=== PATIENT | female | born 1945 | race African-American/Black ===

== ENCOUNTER 2019-04-24 12:12 | Inpatient (IN) | payer MEDICARE, BC, MEDICAID ==
[2019-04-24] VITALS (27 sets, daily range): BP systolic 87–144; BP diastolic 46–75
[~2019-04-24] VITALS: Ht 170.2 cm; Wt 93.0 kg
[2019-04-24] MEDS ORDERED: SODIUM CHLORIDE 0.9% 1,000 ML IV ONE ×2 (12:21→18:30)
[2019-04-24] MEDS ORDERED: LORAZEPAM 2MG/ML CPJ ONE (12:26)
[2019-04-24] MEDS ORDERED: LORAZEPAM 2MG/ML CPJ IV ONE (12:30)
[2019-04-24] MEDS ORDERED: LEVETIRACETAM 1000MG/100ML 100 ML IV ONE (12:30)
[2019-04-24 12:53] LABS: BASOPHILS % 0.6 % (0.0-2.0); EOSINOPHILS % 0.7 % (0.0-5.0); HEMATOCRIT. 42.6 % (36.0-48.0); HEMOGLOBIN. 14.3 g/dL (12.0-16.0); MEAN CORPUSCULAR VOLUME 89.3 fL (81.0-99.0); MEAN PLATELET VOLUME 11.2 fl (7.4-10.4); MONOCYTES % 7.6 % (2.0-8.0); NEUTROPHILS % 64.1 % (40.0-76.0); PLATELET 177 x1000/uL (130-400); RED BLOOD CELL COUNT 4.77 mill/uL (4.2-5.4); RED CELL DISTRIBUTION WIDTH 13.8 % (11.6-14.6)
[2019-04-24 12:59] LABS: INR 1.3; PROTHROMBIN TIME 13.1 sec (9.6-11.0)
[2019-04-24 13:03] LABS: CHLORIDE 110 mEq/L (98-107)
[2019-04-24 13:08] LABS: ETHANOL BLOOD < 10 mg/dL
[2019-04-24 13:10] LABS: LDL CHOLESTEROL 111 mg/dL (5-100)
[2019-04-24 13:12] LABS: CREATINE KINASE 106 IU/L (26-192)
[2019-04-24] MEDS ORDERED: KCL 10MEQ/50ML PREMIX 50 ML IV ONE (13:30)
[2019-04-24] MEDS ORDERED: LEVOFLOXACIN 500MG PREMIX 100 ML IV ONE (13:30)
[2019-04-24 13:55] LABS: BG BASE EXCESS -7.8 mmol/L (-2.0-2.0); BG DEOXYHEMOGLOBIN 1.3 % (0.0-5.0); BG FRACTION INSPIRED OXYGEN 32; BG HCO3 ACT 15.7 mmol/L (22.0-26.0); BG METHEMOGLOBIN 0.1 % (0.0-1.5); BG OXYGEN SATURATION 98.7 % (92.0-98.5); BG OXYHEMOGLOBIN 98.6 % (94.0-97.0); BG PCO2 26.8 mmHg (35.0-45.0); BG PH 7.385 (7.350-7.450); BG PO2 157.3 mmHg (75.0-100.0); BG SAMPLE SITE RIGHT RADIAL; BG TOTAL HEMOGLOBIN 12.9 g/dL (12.0-18.0); BG VENT MODE NASAL CANNULA
[2019-04-24 14:12] LABS: CLARITY URINE TURBID (CLEAR); COLOR URINE DARK YELLOW (YELLOW); KETONES URINE 1+ (NEGATIVE); LEUKOCYTE ESTERASE URINE 2+ (NEGATIVE); NITRITE URINE POSITIVE (NEGATIVE); OCCULT BLOOD URINE 1+ (NEGATIVE); PH URINE 5.5 (4.5-8.0); PROTEIN URINE 2+ (NEGATIVE); SPECIFIC GRAVITY URINE 1.026 (1.005-1.030)
[2019-04-24] MEDS ORDERED: PANTOPRAZOLE SODIUM 40 MG/VIAL IV SCH (14:15)
[2019-04-24] MEDS ORDERED: LORAZEPAM 2MG/ML CPJ IV PRN (14:15)
[2019-04-24] MEDS ORDERED: DEXT 5%/0.45% NACL KCL 10MEQ/L 1,000 ML IV SCH (14:15)
[2019-04-24] MEDS ORDERED: ONDANSETRON HCL 4MG/2ML INJ IV PRN (14:15)
[2019-04-24] MEDS ORDERED: LEVOFLOXACIN 500MG PREMIX 100 ML IV SCH (14:15)
[2019-04-24] MEDS ORDERED: CLONIDINE 0.1MG TABLET PO PRN (14:15)
[2019-04-24 14:27] LABS: *AMPHETAMINES SCREEN URINE NEGATIVE (NEGATIVE)
[2019-04-24 14:28] LABS: *BARBITURATES SCREEN URINE NEGATIVE (NEGATIVE); *BENZODIAZEPINES SCREEN URINE PRESUMTIVE POSITIVE (NEGATIVE); *COCAINE SCREEN URINE NEGATIVE (NEGATIVE); CANNABINOID URINE SCREEN NEGATIVE (NEGATIVE); METHADONE URINE SCREEN NEGATIVE (NEGATIVE); OPIATES URINE SCREEN NEGATIVE (NEGATIVE); PHENCYCLIDINE URINE SCREEN NEGATIVE (NEGATIVE)
[2019-04-24] MEDS ORDERED: SODIUM CHLORIDE 0.9% 1,000 ML IV NR (17:30)
[2019-04-24] MEDS ORDERED: NOREPINEPHRINE 4 MG in DEXT 5% WATER 246 ML IV PRN (18:00)
[2019-04-24] MEDS ORDERED: DEXTROSE 50% WATER 50ML SYRINGE IV PRN (18:15)
[2019-04-24] MEDS: INSULIN LISPRO 100 UNITS/ML SUBCUT SCH ×2 (18:45→23:37)
[2019-04-24] MEDS: PANTOPRAZOLE SODIUM 40 MG/VIAL IV SCH (19:40)
[2019-04-24] MEDS: BLOOD SUGAR DIAGNOSTIC STRIP TEST SCH ×2 (19:41→23:41)
[2019-04-24] MEDS: DEXT 5%/0.45% NACL KCL 10MEQ/L 1,000 ML IV SCH (19:42)
[2019-04-24] MEDS ORDERED: LEVETIRACETAM 500MG/5ML CUP PO SCH (21:00)
[2019-04-24] MEDS: ATORVASTATIN CALCIUM 10MG TABLET PO SCH (21:00)
[2019-04-24] MEDS ORDERED: LEVETIRACETAM 500 MG in SODIUM CHLORIDE 0.9% 100 ML IV SCH (22:15)
[2019-04-24] MEDS: LEVETIRACETAM 500MG PREMIX 100 ML IV SCH (22:59)
[2019-04-25] VITALS (61 sets, daily range): BP systolic 74–175; BP diastolic 24–120
[2019-04-25 05:45] LABS: BASOPHILS % 0.6 % (0.0-2.0); EOSINOPHILS % 1.2 % (0.0-5.0); HEMATOCRIT. 40.6 % (36.0-48.0); HEMOGLOBIN. 13.4 g/dL (12.0-16.0); LYMPHOCYTES % 26.8 % (20.0-50.0); MEAN CORPUSCULAR HEMOGLOBIN 29.5 pg (28.0-32.0); MEAN CORPUSCULAR VOLUME 89.7 fL (81.0-99.0); MONOCYTES % 11.2 % (2.0-8.0); NEUTROPHILS % 60.2 % (40.0-76.0); PLATELET 129 x1000/uL (130-400); RED BLOOD CELL COUNT 4.53 mill/uL (4.2-5.4)
[2019-04-25] MEDS: BLOOD SUGAR DIAGNOSTIC STRIP TEST SCH ×4 (05:45→23:32)
[2019-04-25] MEDS: INSULIN LISPRO 100 UNITS/ML SUBCUT SCH ×4 (05:45→23:32)
[2019-04-25 05:51] LABS: CHLORIDE 118 mEq/L (98-107)
[2019-04-25 06:01] LABS: PHOSPHORUS 2.2 mg/dL (2.5-4.9)
[2019-04-25 06:06] LABS: CREATINE KINASE MB FRACTION 2.2 ng/mL (0.5-3.6)
[2019-04-25] MEDS: DEXT 5%/0.45% NACL KCL 10MEQ/L 1,000 ML IV SCH ×2 (06:44→22:21)
[2019-04-25] MEDS ORDERED: LEVOFLOXACIN 500MG PREMIX 100 ML IV SCH (09:00)
[2019-04-25] MEDS: LEVETIRACETAM 500MG PREMIX 100 ML IV SCH ×2 (09:13→20:15)
[2019-04-25] MEDS: PANTOPRAZOLE SODIUM 40 MG/VIAL IV SCH (09:13)
[2019-04-25] MEDS ORDERED: MAGNESIUM 2 G PREMIX 50 ML IV SCH (10:00)
[2019-04-25] MEDS ORDERED: POTASSIUM PHOS,M-BASIC-D-BASIC 30 MMOL in SODIUM CHLORIDE 0.9% 500 ML IV SCH (10:00)
[2019-04-25] MEDS: LEVOFLOXACIN 500MG PREMIX 100 ML IV SCH (12:11)
[2019-04-25] MEDS: ASPIRIN 81MG TABLET PO SCH (16:44)
[2019-04-25] MEDS: CLOPIDOGREL 75MG TABLET PO SCH (16:44)
[2019-04-25] MEDS: ACETAMINOPHEN 325MG TABLET PO PRN (18:30)
[2019-04-25] MEDS: ATORVASTATIN CALCIUM 10MG TABLET PO SCH ×2 (20:09→20:57)
[2019-04-26] VITALS (48 sets, daily range): BP systolic 61–163; BP diastolic 24–121
[2019-04-26] MEDS: ACETAMINOPHEN 325MG TABLET PO PRN ×2 (03:36→11:10)
[2019-04-26] MEDS: BLOOD SUGAR DIAGNOSTIC STRIP TEST SCH ×3 (05:36→17:49)
[2019-04-26] MEDS: INSULIN LISPRO 100 UNITS/ML SUBCUT SCH ×3 (05:38→17:49)
[2019-04-26 05:50] LABS: EOSINOPHILS % 1.7 % (0.0-5.0); HEMATOCRIT. 45.8 % (36.0-48.0); LYMPHOCYTES % 42.9 % (20.0-50.0); MEAN CORPUSCULAR HEMOGLOBIN 29.5 pg (28.0-32.0); MEAN CORPUSCULAR VOLUME 90.1 fL (81.0-99.0); MONOCYTES % 9.4 % (2.0-8.0); RED BLOOD CELL COUNT 5.08 mill/uL (4.2-5.4); RED CELL DISTRIBUTION WIDTH 14.3 % (11.6-14.6)
[2019-04-26 05:58] LABS: CHLORIDE 115 mEq/L (98-107)
[2019-04-26 06:09] LABS: PHOSPHORUS 2.8 mg/dL (2.5-4.9)
[2019-04-26] MEDS: MORPHINE SULFATE 2 MG/ML CPJ (NOT FOR IM USE) IV PRN ×3 (06:26→19:53)
[2019-04-26 07:47] LABS: PLATELET ESTIMATE SLIGHTLY DECREASED
[2019-04-26 07:48] LABS: PLATELET 113 x1000/uL (130-400)
[2019-04-26] MEDS: CLOPIDOGREL 75MG TABLET PO SCH (08:33)
[2019-04-26] MEDS: PANTOPRAZOLE SODIUM 40 MG/VIAL IV SCH (08:33)
[2019-04-26] MEDS: ASPIRIN 81MG TABLET PO SCH (08:33)
[2019-04-26] MEDS: LEVETIRACETAM 500MG PREMIX 100 ML IV SCH ×2 (09:56→19:53)
[2019-04-26] MEDS: DEXT 5%/0.45% NACL KCL 10MEQ/L 1,000 ML IV SCH (10:51)
[2019-04-26] MEDS: LEVOFLOXACIN 500MG PREMIX 100 ML IV SCH (11:10)
[2019-04-26] MEDS: LORAZEPAM 2MG/ML CPJ IV PRN (16:51)
[2019-04-26] MEDS: ATORVASTATIN CALCIUM 10MG TABLET PO SCH (19:53)
[2019-04-27] VITALS (32 sets, daily range): BP systolic 50–138; BP diastolic 20–90
[2019-04-27] MEDS: LORAZEPAM 2MG/ML CPJ IV PRN ×4 (00:14→22:37)
[2019-04-27] MEDS: BLOOD SUGAR DIAGNOSTIC STRIP TEST SCH ×4 (00:19→18:00)
[2019-04-27] MEDS: INSULIN LISPRO 100 UNITS/ML SUBCUT SCH ×4 (00:23→17:18)
[2019-04-27 05:50] LABS: BASOPHILS % 0.8 % (0.0-2.0); EOSINOPHILS % 2.4 % (0.0-5.0); HEMATOCRIT. 39.8 % (36.0-48.0); HEMOGLOBIN. 13.3 g/dL (12.0-16.0); LYMPHOCYTES % 25.8 % (20.0-50.0); MEAN CORPUSCULAR HEMOGLOBIN 29.6 pg (28.0-32.0); MEAN CORPUSCULAR VOLUME 88.7 fL (81.0-99.0); MONOCYTES % 9.7 % (2.0-8.0); NEUTROPHILS % 61.3 % (40.0-76.0); RED BLOOD CELL COUNT 4.48 mill/uL (4.2-5.4)
[2019-04-27 06:06] LABS: CHLORIDE 116 mEq/L (98-107)
[2019-04-27 06:13] LABS: PHOSPHORUS 2.2 mg/dL (2.5-4.9)
[2019-04-27] MEDS: DEXT 5%/0.45% NACL KCL 10MEQ/L 1,000 ML IV SCH (06:24)
[2019-04-27 07:48] LABS: MEAN PLATELET VOLUME 10.8 fl (7.4-10.4); PLATELET 107 x1000/uL (130-400)
[2019-04-27] MEDS: LEVETIRACETAM 500MG PREMIX 100 ML IV SCH ×2 (08:36→22:37)
[2019-04-27] MEDS: ASCORBIC ACID 500 MG TABLET PO SCH (08:36)
[2019-04-27] MEDS: CLOPIDOGREL 75MG TABLET PO SCH (08:36)
[2019-04-27] MEDS: ASPIRIN 81MG TABLET PO SCH (08:36)
[2019-04-27] MEDS: ZINC SULFATE 220 MG ( 50 ) CAPSULE PO SCH (08:36)
[2019-04-27] MEDS: PANTOPRAZOLE SODIUM 40 MG/VIAL IV SCH (08:36)
[2019-04-27] MEDS ORDERED: MAGNESIUM 1 G PREMIX 100 ML IV NR (09:30)
[2019-04-27] MEDS ORDERED: POTASSIUM CHLORIDE INJ 40 MEQ in DEXT 5% WATER 250 ML IV ONE (09:30)
[2019-04-27] MEDS ORDERED: POTASSIUM PHOS,M-BASIC-D-BASIC 30 MMOL in SODIUM CHLORIDE 0.9% 500 ML IV NR (10:00)
[2019-04-27] MEDS: LEVOFLOXACIN 500MG PREMIX 100 ML IV SCH (11:06)
[2019-04-27] MEDS: AMIKACIN 500MG in SODIUM CHLORIDE 0.9% 100ML IV SCH (14:59)
[2019-04-27] MEDS: ATORVASTATIN CALCIUM 10MG TABLET PO SCH (22:38)
[2019-04-28] VITALS: BP 127/73
[2019-04-28] MEDS: BLOOD SUGAR DIAGNOSTIC STRIP TEST SCH ×5 (00:27→23:37)
[2019-04-28] MEDS: AMIKACIN 500MG in SODIUM CHLORIDE 0.9% 100ML IV SCH ×2 (03:29→15:32)
[2019-04-28 04:00] VITALS: BP 128/74
[2019-04-28] MEDS: DEXT 5%/0.45% NACL KCL 10MEQ/L 1,000 ML IV SCH (06:01)
[2019-04-28] MEDS: INSULIN LISPRO 100 UNITS/ML SUBCUT SCH ×5 (06:02→23:39)
[2019-04-28 08:00] VITALS: BP 160/100
[2019-04-28 08:37] LABS: HEMATOCRIT. 38.1 % (36.0-48.0); MEAN CORPUSCULAR HEMOGLOBIN 30.4 pg (28.0-32.0); MEAN CORPUSCULAR VOLUME 89.2 fL (81.0-99.0); MEAN PLATELET VOLUME 12.6 fl (7.4-10.4); PLATELET 179 x1000/uL (130-400); RED BLOOD CELL COUNT 4.27 mill/uL (4.2-5.4)
[2019-04-28] MEDS: LEVETIRACETAM 500MG PREMIX 100 ML IV SCH ×2 (08:59→21:05)
[2019-04-28] MEDS: LORAZEPAM 2MG/ML CPJ IV PRN ×2 (09:00→22:20)
[2019-04-28] MEDS: CLOPIDOGREL 75MG TABLET PO SCH (09:00)
[2019-04-28] MEDS: PANTOPRAZOLE SODIUM 40 MG/VIAL IV SCH (09:00)
[2019-04-28] MEDS: ASCORBIC ACID 500 MG TABLET PO SCH (09:01)
[2019-04-28] MEDS: ASPIRIN 81MG TABLET PO SCH (09:01)
[2019-04-28 09:03] LABS: CHLORIDE 113 mEq/L (98-107)
[2019-04-28] MEDS: ZINC SULFATE 220 MG ( 50 ) CAPSULE PO SCH (09:12)
[2019-04-28 09:20] LABS: PHOSPHORUS 2.5 mg/dL (2.5-4.9)
[2019-04-28 12:00] VITALS: BP 121/71
[2019-04-28 16:00] VITALS: BP 145/78
[2019-04-28 16:31] LABS: PLATELET ESTIMATE NORMAL
[2019-04-28 20:00] VITALS: BP 132/95
[2019-04-28] MEDS: ATORVASTATIN CALCIUM 10MG TABLET PO SCH (21:05)
[2019-04-29] VITALS: BP 123/68
[2019-04-29] MEDS: AMIKACIN 500MG in SODIUM CHLORIDE 0.9% 100ML IV SCH ×2 (03:09→16:05)
[2019-04-29 04:00] VITALS: BP 132/74
[2019-04-29] MEDS: BLOOD SUGAR DIAGNOSTIC STRIP TEST SCH ×3 (05:47→18:24)
[2019-04-29] MEDS: INSULIN LISPRO 100 UNITS/ML SUBCUT SCH ×3 (05:47→18:24)
[2019-04-29 08:00] VITALS: BP 136/72
[2019-04-29] MEDS: ASPIRIN 81MG TABLET PO SCH (10:14)
[2019-04-29] MEDS: ZINC SULFATE 220 MG ( 50 ) CAPSULE PO SCH (10:14)
[2019-04-29] MEDS: LEVETIRACETAM 500MG PREMIX 100 ML IV SCH ×2 (10:14→22:47)
[2019-04-29] MEDS: ASCORBIC ACID 500 MG TABLET PO SCH (10:14)
[2019-04-29] MEDS: CLOPIDOGREL 75MG TABLET PO SCH (10:14)
[2019-04-29] MEDS: PANTOPRAZOLE SODIUM 40 MG/VIAL IV SCH (10:14)
[2019-04-29 12:00] VITALS: BP 128/78
[2019-04-29] MEDS: DEXT 5%/0.45% NACL KCL 10MEQ/L 1,000 ML IV SCH (13:30)
[2019-04-29 16:00] VITALS: BP 132/88
[2019-04-29 20:00] VITALS: BP 132/80
[2019-04-29] MEDS: FAMOTIDINE 20MG/2ML VIAL IV SCH (22:47)
[2019-04-29] MEDS: ATORVASTATIN CALCIUM 10MG TABLET PO SCH (22:48)
[2019-04-30] VITALS (7 sets, daily range): BP systolic 120–153; BP diastolic 72–87
[2019-04-30] MEDS: BLOOD SUGAR DIAGNOSTIC STRIP TEST SCH ×4 (00:22→18:33)
[2019-04-30] MEDS: INSULIN LISPRO 100 UNITS/ML SUBCUT SCH ×4 (00:23→18:47)
[2019-04-30] MEDS: AMIKACIN 500MG in SODIUM CHLORIDE 0.9% 100ML IV SCH ×2 (02:50→15:57)
[2019-04-30] MEDS: FAMOTIDINE 20MG/2ML VIAL IV SCH ×2 (08:08→20:28)
[2019-04-30] MEDS: ASPIRIN 81MG TABLET PO SCH (08:08)
[2019-04-30] MEDS: CLOPIDOGREL 75MG TABLET PO SCH (08:08)
[2019-04-30] MEDS: ZINC SULFATE 220 MG ( 50 ) CAPSULE PO SCH (08:08)
[2019-04-30] MEDS: ASCORBIC ACID 500 MG TABLET PO SCH (08:08)
[2019-04-30] MEDS: LEVETIRACETAM 500MG PREMIX 100 ML IV SCH ×2 (08:09→20:28)
[2019-04-30] MEDS: DEXT 5%/0.45% NACL KCL 10MEQ/L 1,000 ML IV SCH (08:09)
[2019-04-30] MEDS: ATORVASTATIN CALCIUM 10MG TABLET PO SCH (20:28)
[2019-05-01] VITALS (7 sets, daily range): BP systolic 125–176; BP diastolic 66–87
[2019-05-01] MEDS: BLOOD SUGAR DIAGNOSTIC STRIP TEST SCH ×5 (00:40→23:55)
[2019-05-01] MEDS: INSULIN LISPRO 100 UNITS/ML SUBCUT SCH ×5 (00:45→23:59)
[2019-05-01] MEDS: AMIKACIN 500MG in SODIUM CHLORIDE 0.9% 100ML IV SCH ×2 (03:32→15:33)
[2019-05-01] MEDS: LEVETIRACETAM 500MG PREMIX 100 ML IV SCH ×2 (08:12→20:44)
[2019-05-01] MEDS: ASCORBIC ACID 500 MG TABLET PO SCH (08:22)
[2019-05-01] MEDS: ASPIRIN 81MG TABLET PO SCH (08:22)
[2019-05-01] MEDS: ZINC SULFATE 220 MG ( 50 ) CAPSULE PO SCH (08:22)
[2019-05-01] MEDS: CLOPIDOGREL 75MG TABLET PO SCH (08:22)
[2019-05-01] MEDS: FAMOTIDINE 20MG/2ML VIAL IV SCH ×2 (08:22→20:44)
[2019-05-01] MEDS: DEXT 5%/0.45% NACL KCL 10MEQ/L 1,000 ML IV SCH ×2 (10:00→20:44)
[2019-05-01] MEDS: ATORVASTATIN CALCIUM 10MG TABLET PO SCH (20:44)
[2019-05-02] VITALS: BP 146/92
[2019-05-02] MEDS: AMIKACIN 500MG in SODIUM CHLORIDE 0.9% 100ML IV SCH ×2 (02:11→17:46)
[2019-05-02 04:00] VITALS: BP 141/73
[2019-05-02] MEDS: BLOOD SUGAR DIAGNOSTIC STRIP TEST SCH ×3 (05:20→18:24)
[2019-05-02] MEDS: INSULIN LISPRO 100 UNITS/ML SUBCUT SCH ×3 (05:21→18:24)
[2019-05-02 08:21] VITALS: BP 129/73
[2019-05-02] MEDS: LEVETIRACETAM 500MG PREMIX 100 ML IV SCH (08:45)
[2019-05-02] MEDS: CLOPIDOGREL 75MG TABLET PO SCH (08:47)
[2019-05-02] MEDS: ZINC SULFATE 220 MG ( 50 ) CAPSULE PO SCH (08:47)
[2019-05-02] MEDS: ASCORBIC ACID 500 MG TABLET PO SCH (08:47)
[2019-05-02] MEDS: ASPIRIN 81MG TABLET PO SCH (08:47)
[2019-05-02] MEDS: FAMOTIDINE 20MG/2ML VIAL IV SCH (08:47)
[2019-05-02 11:40] VITALS: BP 132/68
[2019-05-02 16:12] VITALS: BP 129/71
[2019-05-02 20:00] VITALS: BP 138/84
[2019-05-02] MEDS: ATORVASTATIN CALCIUM 10MG TABLET PO SCH (20:29)
[2019-05-02] MEDS: LEVETIRACETAM 500MG/5ML CUP PO SCH (20:29)
[2019-05-02] MEDS: FAMOTIDINE 20MG TABLET PO SCH (20:29)
[2019-05-03 00:02] VITALS: BP 141/78
[2019-05-03] MEDS: ACETAMINOPHEN 325MG TABLET PO PRN ×2 (00:48→21:35)
[2019-05-03] MEDS: INSULIN LISPRO 100 UNITS/ML SUBCUT SCH ×4 (00:49→18:37)
[2019-05-03] MEDS: BLOOD SUGAR DIAGNOSTIC STRIP TEST SCH ×4 (00:49→18:37)
[2019-05-03] MEDS: AMIKACIN 500MG in SODIUM CHLORIDE 0.9% 100ML IV SCH ×2 (03:14→15:22)
[2019-05-03 04:00] VITALS: BP 144/86
[2019-05-03 07:34] VITALS: BP 183/79
[2019-05-03] MEDS: CLOPIDOGREL 75MG TABLET PO SCH (08:29)
[2019-05-03] MEDS: LEVETIRACETAM 500MG/5ML CUP PO SCH ×2 (08:29→21:35)
[2019-05-03] MEDS: ASCORBIC ACID 500 MG TABLET PO SCH (08:29)
[2019-05-03] MEDS: ASPIRIN 81MG TABLET PO SCH (08:29)
[2019-05-03] MEDS: FAMOTIDINE 20MG TABLET PO SCH ×2 (08:29→21:35)
[2019-05-03] MEDS: ZINC SULFATE 220 MG ( 50 ) CAPSULE PO SCH (08:29)
[2019-05-03] MEDS: DEXT 5%/0.45% NACL KCL 10MEQ/L 1,000 ML IV SCH (11:33)
[2019-05-03 11:46] VITALS: BP 137/74
[2019-05-03 17:01] VITALS: BP 134/70
[2019-05-03 18:46] LABS: CHLORIDE 106 mEq/L (98-107)
[2019-05-03 20:00] VITALS: BP 139/88
[2019-05-03] MEDS: ATORVASTATIN CALCIUM 10MG TABLET PO SCH (21:35)
[2019-05-04] VITALS: BP 133/74
[2019-05-04] MEDS: BLOOD SUGAR DIAGNOSTIC STRIP TEST SCH ×4 (00:06→17:57)
[2019-05-04] MEDS: INSULIN LISPRO 100 UNITS/ML SUBCUT SCH ×4 (00:10→17:50)
[2019-05-04] MEDS: MORPHINE SULFATE 2 MG/ML CPJ (NOT FOR IM USE) IV PRN ×3 (02:57→17:52)
[2019-05-04] MEDS: AMIKACIN 500MG in SODIUM CHLORIDE 0.9% 100ML IV SCH ×2 (02:58→14:34)
[2019-05-04 04:00] VITALS: BP 147/71
[2019-05-04 08:23] VITALS: BP 157/78
[2019-05-04] MEDS: ASPIRIN 81MG TABLET PO SCH (08:57)
[2019-05-04] MEDS: ASCORBIC ACID 500 MG TABLET PO SCH (08:57)
[2019-05-04] MEDS: LEVETIRACETAM 500MG/5ML CUP PO SCH ×2 (08:57→21:02)
[2019-05-04] MEDS: ZINC SULFATE 220 MG ( 50 ) CAPSULE PO SCH (08:57)
[2019-05-04] MEDS: CLOPIDOGREL 75MG TABLET PO SCH (08:57)
[2019-05-04] MEDS: FAMOTIDINE 20MG TABLET PO SCH ×2 (08:58→21:02)
[2019-05-04 11:45] VITALS: BP 149/82
[2019-05-04] MEDS: ENOXAPARIN 100MG/ML SYR SUBCUT SCH ×2 (13:07→21:01)
[2019-05-04] MEDS: LORAZEPAM 2MG/ML CPJ IV PRN ×2 (14:34→21:02)
[2019-05-04 15:35] VITALS: BP 145/77
[2019-05-04 20:00] VITALS: BP 137/75
[2019-05-04] MEDS: ATORVASTATIN CALCIUM 10MG TABLET PO SCH (21:03)
[2019-05-05] VITALS: BP 144/87
[2019-05-05] MEDS: INSULIN LISPRO 100 UNITS/ML SUBCUT SCH ×4 (00:13→18:53)
[2019-05-05] MEDS: BLOOD SUGAR DIAGNOSTIC STRIP TEST SCH ×4 (00:14→17:56)
[2019-05-05] MEDS: MORPHINE SULFATE 2 MG/ML CPJ (NOT FOR IM USE) IV PRN ×2 (01:54→17:01)
[2019-05-05 04:00] VITALS: BP_SYST 107; BP_DIAS 64; BP_DIAS 67
[2019-05-05 08:00] VITALS: BP 130/67
[2019-05-05] MEDS: ENOXAPARIN 100MG/ML SYR SUBCUT SCH ×2 (09:54→21:29)
[2019-05-05] MEDS: LEVETIRACETAM 500MG/5ML CUP PO SCH ×2 (09:54→21:29)
[2019-05-05] MEDS: ZINC SULFATE 220 MG ( 50 ) CAPSULE PO SCH (09:55)
[2019-05-05] MEDS: FAMOTIDINE 20MG TABLET PO SCH ×2 (09:55→21:29)
[2019-05-05] MEDS: ASCORBIC ACID 500 MG TABLET PO SCH (09:55)
[2019-05-05] MEDS: CLOPIDOGREL 75MG TABLET PO SCH (09:55)
[2019-05-05] MEDS: ASPIRIN 81MG TABLET PO SCH (09:55)
[2019-05-05 12:00] VITALS: BP 125/86
[2019-05-05 16:00] VITALS: BP 139/70
[2019-05-05 20:00] VITALS: BP 128/77
[2019-05-05] MEDS: ATORVASTATIN CALCIUM 10MG TABLET PO SCH (21:29)
[2019-05-06] VITALS (8 sets, daily range): BP systolic 120–150; BP diastolic 65–88
[2019-05-06] MEDS: INSULIN LISPRO 100 UNITS/ML SUBCUT SCH ×4 (01:08→18:34)
[2019-05-06] MEDS: MORPHINE SULFATE 2 MG/ML CPJ (NOT FOR IM USE) IV PRN ×3 (01:09→22:48)
[2019-05-06] MEDS: BLOOD SUGAR DIAGNOSTIC STRIP TEST SCH ×4 (05:40→18:17)
[2019-05-06] MEDS: CLOPIDOGREL 75MG TABLET PO SCH (09:48)
[2019-05-06] MEDS: ZINC SULFATE 220 MG ( 50 ) CAPSULE PO SCH (09:48)
[2019-05-06] MEDS: LEVETIRACETAM 500MG/5ML CUP PO SCH ×2 (09:48→20:22)
[2019-05-06] MEDS: ENOXAPARIN 100MG/ML SYR SUBCUT SCH ×2 (09:48→20:23)
[2019-05-06] MEDS: FAMOTIDINE 20MG TABLET PO SCH ×2 (09:49→20:22)
[2019-05-06] MEDS: ASCORBIC ACID 500 MG TABLET PO SCH (09:49)
[2019-05-06] MEDS: ASPIRIN 81MG TABLET PO SCH (12:08)
[2019-05-06] MEDS: RISPERIDONE 0.25MG TABLET PO SCH (20:22)
[2019-05-06] MEDS: ATORVASTATIN CALCIUM 10MG TABLET PO SCH (20:22)
[2019-05-07] VITALS (7 sets, daily range): BP systolic 119–131; BP diastolic 63–74
[2019-05-07] MEDS: INSULIN LISPRO 100 UNITS/ML SUBCUT SCH ×4 (00:04→18:03)
[2019-05-07] MEDS: BLOOD SUGAR DIAGNOSTIC STRIP TEST SCH ×4 (00:17→17:54)
[2019-05-07 08:59] LABS: BASOPHILS % 0.6 % (0.0-2.0); HEMOGLOBIN. 12.3 g/dL (12.0-16.0); LYMPHOCYTES % 22.8 % (20.0-50.0); MEAN CORPUSCULAR HEMOGLOBIN 29.4 pg (28.0-32.0); MEAN CORPUSCULAR VOLUME 90.7 fL (81.0-99.0); MEAN PLATELET VOLUME 11.9 fl (7.4-10.4); MONOCYTES % 10.6 % (2.0-8.0); PLATELET 184 x1000/uL (130-400); RED BLOOD CELL COUNT 4.19 mill/uL (4.2-5.4); RED CELL DISTRIBUTION WIDTH 15.2 % (11.6-14.6)
[2019-05-07] MEDS: LEVETIRACETAM 500MG/5ML CUP PO SCH ×2 (09:06→20:57)
[2019-05-07] MEDS: ASPIRIN 81MG TABLET PO SCH (09:06)
[2019-05-07] MEDS: ZINC SULFATE 220 MG ( 50 ) CAPSULE PO SCH (09:06)
[2019-05-07] MEDS: FAMOTIDINE 20MG TABLET PO SCH ×2 (09:06→20:57)
[2019-05-07] MEDS: ENOXAPARIN 100MG/ML SYR SUBCUT SCH ×2 (09:06→20:58)
[2019-05-07] MEDS: ASCORBIC ACID 500 MG TABLET PO SCH (09:06)
[2019-05-07] MEDS: RISPERIDONE 0.25MG TABLET PO SCH ×2 (09:06→20:57)
[2019-05-07] MEDS: CLOPIDOGREL 75MG TABLET PO SCH (09:07)
[2019-05-07 10:19] LABS: CHLORIDE 109 mEq/L (98-107)
[2019-05-07] MEDS: LORAZEPAM 2MG/ML CPJ IV PRN ×3 (10:34→20:58)
[2019-05-07] MEDS ORDERED: ENOXAPARIN 100MG/ML SYR SUBCUT SCH (16:38)
[2019-05-07] MEDS: ATORVASTATIN CALCIUM 10MG TABLET PO SCH (20:57)
[2019-05-08] VITALS: BP 123/69
[2019-05-08] MEDS: INSULIN LISPRO 100 UNITS/ML SUBCUT SCH ×5 (01:13→23:26)
[2019-05-08] MEDS: LORAZEPAM 2MG/ML CPJ IV PRN (03:08)
[2019-05-08 04:00] VITALS: BP 119/64
[2019-05-08] MEDS: BLOOD SUGAR DIAGNOSTIC STRIP TEST SCH ×5 (06:39→23:26)
[2019-05-08 08:00] VITALS: BP 105/62
[2019-05-08] MEDS: LEVETIRACETAM 500MG/5ML CUP PO SCH ×2 (10:11→20:04)
[2019-05-08] MEDS: FAMOTIDINE 20MG TABLET PO SCH ×2 (10:11→20:04)
[2019-05-08] MEDS: ASPIRIN 81MG TABLET PO SCH (10:12)
[2019-05-08] MEDS: ZINC SULFATE 220 MG ( 50 ) CAPSULE PO SCH (10:12)
[2019-05-08] MEDS: ASCORBIC ACID 500 MG TABLET PO SCH (10:12)
[2019-05-08] MEDS: CLOPIDOGREL 75MG TABLET PO SCH (10:12)
[2019-05-08] MEDS: RISPERIDONE 0.25MG TABLET PO SCH ×2 (10:12→20:04)
[2019-05-08] MEDS: ENOXAPARIN 100MG/ML SYR SUBCUT SCH ×2 (10:13→20:05)
[2019-05-08] MEDS ORDERED: SODIUM POLYSTYRENE SULFONATE 15 G/60 ML BOT GT NR (10:30)
[2019-05-08 12:00] VITALS: BP 112/60
[2019-05-08 16:00] VITALS: BP 154/64
[2019-05-08 20:00] VITALS: BP 140/75
[2019-05-08] MEDS: ATORVASTATIN CALCIUM 10MG TABLET PO SCH (20:05)
[2019-05-09] VITALS: BP 129/80
[2019-05-09 04:00] VITALS: BP 141/78
[2019-05-09] MEDS: LORAZEPAM 2MG/ML CPJ IV PRN (04:54)
[2019-05-09] MEDS: BLOOD SUGAR DIAGNOSTIC STRIP TEST SCH ×3 (05:15→18:28)
[2019-05-09] MEDS: INSULIN LISPRO 100 UNITS/ML SUBCUT SCH ×3 (05:17→18:54)
[2019-05-09 08:00] VITALS: BP 145/94
[2019-05-09] MEDS: CLOPIDOGREL 75MG TABLET PO SCH (09:27)
[2019-05-09] MEDS: LEVETIRACETAM 500MG/5ML CUP PO SCH ×2 (09:27→20:18)
[2019-05-09] MEDS: ASPIRIN 81MG TABLET PO SCH (09:27)
[2019-05-09] MEDS: RISPERIDONE 0.25MG TABLET PO SCH ×2 (09:27→20:18)
[2019-05-09] MEDS: ZINC SULFATE 220 MG ( 50 ) CAPSULE PO SCH (09:27)
[2019-05-09] MEDS: ASCORBIC ACID 500 MG TABLET PO SCH (09:27)
[2019-05-09] MEDS: FAMOTIDINE 20MG TABLET PO SCH ×2 (09:27→20:18)
[2019-05-09] MEDS: ENOXAPARIN 100MG/ML SYR SUBCUT SCH ×2 (09:28→20:19)
[2019-05-09 10:06] LABS: BASOPHILS % 0.5 % (0.0-2.0); EOSINOPHILS % 2.2 % (0.0-5.0); HEMATOCRIT. 38.8 % (36.0-48.0); HEMOGLOBIN. 12.5 g/dL (12.0-16.0); LYMPHOCYTES % 21.4 % (20.0-50.0); MEAN CORPUSCULAR HEMOGLOBIN 29.5 pg (28.0-32.0); MEAN CORPUSCULAR VOLUME 91.8 fL (81.0-99.0); MEAN PLATELET VOLUME 10.7 fl (7.4-10.4); MONOCYTES % 10.4 % (2.0-8.0); NEUTROPHILS % 65.5 % (40.0-76.0); PLATELET 233 x1000/uL (130-400); RED BLOOD CELL COUNT 4.23 mill/uL (4.2-5.4); RED CELL DISTRIBUTION WIDTH 15.4 % (11.6-14.6)
[2019-05-09 10:09] LABS: CHLORIDE 109 mEq/L (98-107)
[2019-05-09 12:00] VITALS: BP 143/81
[2019-05-09 16:00] VITALS: BP 130/82
[2019-05-09 20:00] VITALS: BP 132/81
[2019-05-09] MEDS: ATORVASTATIN CALCIUM 10MG TABLET PO SCH (20:18)
[2019-05-10] VITALS: BP 135/75
[2019-05-10] MEDS: INSULIN LISPRO 100 UNITS/ML SUBCUT SCH ×4 (01:38→19:05)
[2019-05-10] MEDS: BLOOD SUGAR DIAGNOSTIC STRIP TEST SCH ×4 (01:38→18:00)
[2019-05-10 04:00] VITALS: BP 133/80
[2019-05-10] MEDS: LORAZEPAM 2MG/ML CPJ IV PRN (05:36)
[2019-05-10 08:00] VITALS: BP 123/66
[2019-05-10] MEDS: ASCORBIC ACID 500 MG TABLET PO SCH (09:12)
[2019-05-10] MEDS: FAMOTIDINE 20MG TABLET PO SCH ×2 (09:12→21:38)
[2019-05-10] MEDS: RISPERIDONE 0.25MG TABLET PO SCH ×2 (09:12→21:38)
[2019-05-10] MEDS: ZINC SULFATE 220 MG ( 50 ) CAPSULE PO SCH (09:12)
[2019-05-10] MEDS: ASPIRIN 81MG TABLET PO SCH (09:12)
[2019-05-10] MEDS: ENOXAPARIN 100MG/ML SYR SUBCUT SCH ×2 (09:12→21:38)
[2019-05-10] MEDS: CLOPIDOGREL 75MG TABLET PO SCH (09:12)
[2019-05-10] MEDS: LEVETIRACETAM 500MG/5ML CUP PO SCH ×2 (09:12→21:38)
[2019-05-10 12:00] VITALS: BP 126/60
[2019-05-10 16:00] VITALS: BP 128/66
[2019-05-10 20:00] VITALS: BP 129/67
[2019-05-10] MEDS: ATORVASTATIN CALCIUM 10MG TABLET PO SCH (21:41)
[2019-05-11] VITALS: BP 130/73
[2019-05-11] MEDS: BLOOD SUGAR DIAGNOSTIC STRIP TEST SCH ×3 (00:55→12:00)
[2019-05-11] MEDS: LORAZEPAM 2MG/ML CPJ IV PRN (00:56)
[2019-05-11] MEDS: INSULIN LISPRO 100 UNITS/ML SUBCUT SCH ×3 (00:57→12:00)
[2019-05-11 04:00] VITALS: BP 122/65
[2019-05-11 08:00] VITALS: BP 117/59
[2019-05-11] MEDS: ENOXAPARIN 100MG/ML SYR SUBCUT SCH (08:50)
[2019-05-11] MEDS: LEVETIRACETAM 500MG/5ML CUP PO SCH (08:50)
[2019-05-11] MEDS: ZINC SULFATE 220 MG ( 50 ) CAPSULE PO SCH (08:51)
[2019-05-11] MEDS: ASCORBIC ACID 500 MG TABLET PO SCH (08:51)
[2019-05-11] MEDS: FAMOTIDINE 20MG TABLET PO SCH (08:51)
[2019-05-11] MEDS: CLOPIDOGREL 75MG TABLET PO SCH (08:51)
[2019-05-11] MEDS: ASPIRIN 81MG TABLET PO SCH (08:51)
[2019-05-11] MEDS: RISPERIDONE 0.25MG TABLET PO SCH (08:51)
[2019-05-11 12:00] VITALS: BP 120/66
[2019-05-11 16:00] VITALS: BP 140/80
[2019-05-11 20:18] VITALS: BP 128/65
== END 2019-05-11 21:37 | DRG 64 ==
LOC: ER 12:21 → MICUSO 13:23 → EDBEDREQ 13:26 → EDBEDREQSVC 13:26 → ENRESERV 16:18 → 7WST 04-27 17:00
PROVIDERS: ADMIT Hospitalist; ATTEND Hospitalist
DX: I63.9 Cerebral infarction, unspecified (principal); L89.313 Pressure ulcer of right buttock, stage 3; G93.41 Metabolic encephalopathy; N39.0 Urinary tract infection, site not specified; I82.621 Acute embolism and thrombosis of deep veins of right upper extremity; E46 Unspecified protein-calorie malnutrition; I69.354 Hemiplegia and hemiparesis following cerebral infarction affecting left non-dominant side; G40.901 Epilepsy, unspecified, not intractable, with status epilepticus; M32.9 Systemic lupus erythematosus, unspecified; E11.51 Type 2 diabetes mellitus with diabetic peripheral angiopathy without gangrene; E87.6 Hypokalemia; I25.118 Atherosclerotic heart disease of native coronary artery with other forms of angina pectoris; I25.5 Ischemic cardiomyopathy; I50.9 Heart failure, unspecified; I95.9 Hypotension, unspecified; I11.0 Hypertensive heart disease with heart failure; K21.9 Gastro-esophageal reflux disease without esophagitis; F03.90 Unspecified dementia, unspecified severity, without behavioral disturbance, psychotic disturbance, mood disturbance, and anxiety; B96.20 Unspecified Escherichia coli [E. coli] as the cause of diseases classified elsewhere; R13.10 Dysphagia, unspecified; Z88.0 Allergy status to penicillin; I25.2 Old myocardial infarction; Z93.1 Gastrostomy status; Z95.5 Presence of coronary angioplasty implant and graft; Z68.32 Body mass index [BMI] 32.0-32.9, adult
CPT/HCPCS: 36415; 36600; 70551; 71045; 80048; 80053; 80150; 80305; 80320; 81003; 82140; 82375; 82550; 82553; 82805; 82962; 83605; 83721; 83735; 83880; 84100; 84134; 84145; 84484; 85025; 87077; 87186; 93005; 93306; 93970; 93971; 96361; 96365; 96368; 96375; 99291; A6261; C1893; C9113; J0278; J1650; J1815; J1953; J1956; J2060; J2270; J3475; J3480; J3490; J7030; J7040; J7050; J7060; A4315; G0480

== ENCOUNTER 2019-05-21 22:49 | Emergency (ER) | payer MEDICARE, BC, MEDICAID ==
[~2019-05-21] VITALS: Ht 175.3 cm; Wt 79.0 kg
[2019-05-21] MEDS ORDERED: SODIUM CHLORIDE 0.9% 1,000 ML IV ONE (23:34)
[2019-05-22 00:39] LABS: BASOPHILS % 0.6 % (0.0-2.0); EOSINOPHILS % 1.3 % (0.0-5.0); HEMATOCRIT. 41.2 % (36.0-48.0); HEMOGLOBIN. 13.3 g/dL (12.0-16.0); LYMPHOCYTES % 21.4 % (20.0-50.0); MEAN CORPUSCULAR HEMOGLOBIN 29.8 pg (28.0-32.0); MEAN PLATELET VOLUME 10.7 fl (7.4-10.4); MONOCYTES % 6.3 % (2.0-8.0); NEUTROPHILS % 70.4 % (40.0-76.0); PLATELET 216 x1000/uL (130-400); RED BLOOD CELL COUNT 4.47 mill/uL (4.2-5.4)
[2019-05-22 00:42] LABS: CLARITY URINE TURBID (CLEAR); COLOR URINE DARK YELLOW (YELLOW); KETONES URINE NEGATIVE (NEGATIVE); LEUKOCYTE ESTERASE URINE 2+ (NEGATIVE); NITRITE URINE POSITIVE (NEGATIVE); OCCULT BLOOD URINE 3+ (NEGATIVE); PROTEIN URINE 1+ (NEGATIVE); SPECIFIC GRAVITY URINE 1.023 (1.005-1.030)
[2019-05-22 00:46] LABS: CHLORIDE 105 mEq/L (98-107)
[2019-05-22 00:54] LABS: ETHANOL BLOOD < 10 mg/dL
[2019-05-22 00:57] LABS: CREATINE KINASE 89 IU/L (26-192)
[2019-05-22 01:07] LABS: *AMPHETAMINES SCREEN URINE NEGATIVE (NEGATIVE); *BARBITURATES SCREEN URINE NEGATIVE (NEGATIVE); *BENZODIAZEPINES SCREEN URINE NEGATIVE (NEGATIVE); *COCAINE SCREEN URINE NEGATIVE (NEGATIVE)
[2019-05-22 01:08] LABS: CANNABINOID URINE SCREEN PRESUMTIVE POSITIVE (NEGATIVE); METHADONE URINE SCREEN NEGATIVE (NEGATIVE); OPIATES URINE SCREEN NEGATIVE (NEGATIVE); PHENCYCLIDINE URINE SCREEN NEGATIVE (NEGATIVE)
[2019-05-22] MEDS ORDERED: LORAZEPAM 2MG/ML CPJ IV ONE (01:15)
[2019-05-22] MEDS ORDERED: CEFTRIAXONE 1,000 MG in DEXTROSE 5% WATER 25 ML IV ONE (02:45)
[2019-05-22] MEDS: SULFAMETHOXAZOLE/TRIMETHOPRIM 200MG/40MG PER 5ML PO NR ×2 (03:19→05:35)
[2019-05-22 04:30] VITALS: BP 162/98
== END 2019-05-22 05:41 ==
LOC: ER 22:49
DX: N39.0 Urinary tract infection, site not specified (principal); F03.90 Unspecified dementia, unspecified severity, without behavioral disturbance, psychotic disturbance, mood disturbance, and anxiety; I10 Essential (primary) hypertension; Z86.73 Personal history of transient ischemic attack (TIA), and cerebral infarction without residual deficits; Z88.0 Allergy status to penicillin
CPT/HCPCS: 36415; 70450; 80053; 80305; 80320; 81003; 82140; 82550; 82962; 84443; 84484; 85025; 93005; 93970; 96374; 99284; J2060; J7030; G0480